=== PATIENT | female | born 1995 | race Caucasian/White ===

== ENCOUNTER 2021-06-04 21:04 | Emergency (ER) | payer SELFPAY ==
[~2021-06-04] VITALS: Ht 162.6 cm; Wt 54.0 kg
[2021-06-04] MEDS ORDERED: HYDR-3782 MT (23:48)
[2021-06-05] MEDS ORDERED: LORAZEPAM 1MG TABLET PO ONE
[2021-06-05 00:32] VITALS: BP 110/72
== END 2021-06-05 00:32 | disposition home or self-care (01) ==
LOC: ER 21:04
DX: F41.8 Other specified anxiety disorders (principal); Z56.0 Unemployment, unspecified; Z59.6 Low income; J45.909 Unspecified asthma, uncomplicated
CPT/HCPCS: 81025; 99283